=== PATIENT | female | born 1985 | race Caucasian/White ===

== ENCOUNTER 2017-03-15 18:57 | Emergency (ER) | payer BC ==
[2017-03-15 19:06] VITALS: BP 123/78; PULSE 63; RESP 18; TEMP 98.5; O2SAT 97
--- NOTE | 2017-03-15 20:30 | C.PDOC ---
History Of Present Illness 31 year old female w/o significant PMHx presents to the ED for evaluation of gradually worsening lower back pain for four days. Patient notes pain is localized over lower back, non-radiating, aching, constant, exacerbated by movement. Pt admits to taking a test at home that was negative. Patient denies known trauma or injury, fever, chills, abdominal pain, nausea, vomiting, UTI sx, saddle anesthesia, incontinence, denies weakness, sensory or vascular deficits to B/L LEs. Ambulate to ED for evaluation, appears in pain. Time Seen by Provider: 03/15/17 20:20 Chief Complaint (Nursing): Back Pain History Per: Patient, Family (boyfriend) History/Exam Limitations: no limitations Onset/Duration Of Symptoms: Days (4 days ) Current Symptoms Are (Timing): Still Present Quality Of Discomfort: "Pain" Previous Symptoms: None Associated Symptoms: None Exacerbating Factor(s): Movement Recent travel outside of the [place]: No Past Medical History Reviewed: Historical Data, Nursing Documentation, Vital Signs Vital Signs: Last Vital Signs Temp 98.5 F 03/15/17 19:05 Pulse 63 03/15/17 19:05 Resp 18 03/15/17 19:05 BP 123/78 03/15/17 19:05 Pulse Ox 97 03/15/17 21:04 - Medical History PMH: Anxiety, Bipolar Disorder, Schizophrenia (schizoaffective) - [facility] Procedures GROUP PSYCHOTHERAPY (03/01/16) INDIVID PSYCHOTHERAP NEC (01/22/15) INDIVIDUAL PSYCHOTHERAPY, BEHAVIORAL (03/01/16) OTHER GROUP THERAPY (01/22/15) Family History: States: Unknown Family Hx - Social History Hx Alcohol Use: No Hx Substance Use: No Review Of Systems Constitutional: Negative for: Fever, Chills Cardiovascular: Negative for: Chest Pain Respiratory: Negative for: Shortness of Breath Gastrointestinal: Negative for: Nausea, Vomiting, Abdominal Pain, Diarrhea Genitourinary: Negative for: Dysuria, Hematuria Musculoskeletal: Positive for: Back Pain Neurological: Negative for: Weakness, Numbness Physical Exam - Physical Exam Appears: Well, Non-toxic, No Acute Distress Skin: Normal Color, Warm, Dry, No Rash, No Ecchymosis Eye(s): bilateral: PERRL Nose: No Discharge Oral Mucosa: Moist Throat: No Erythema Neck: No Midline Cervical Tenderness, No Paracervical Tenderness, No Step Off Deformity, Supple Gastrointestinal/Abdominal: Soft, No Tenderness, No Distention, No Guarding Back: No CVA Tenderness, No Vertebral Tenderness, No Decreased ROM, Muscle Spasm , Paraspinal Tenderness (diffuse lumbar paraspinal tenderness. NO palpable deformity.), No Straight Leg Raising Extremity: No Pedal Edema, No Deformity Neurological/Psych: Oriented x3, Normal Speech, Normal Motor, Normal Sensation, Normal Reflexes ED Course And Treatment - Laboratory Results Urine POC: Negative O2 Sat by Pulse Oximetry: 97 (room air ) Pulse Ox Interpretation: Normal - Other Rad L-spine X-Ray: Interpreted by Me, Viewed By Me Interpretation: (-) acute fx or sublux, (+) gas pattern c/w constipation Progress Note: On re-eval, pt is afebrile, hemodynamicaly stable. Non-toxic. AMbulatory in ED with stable gait. Neck: Supple. Abd: benign, (-) guardng, (- ) rebound. Back: (-) CVA tenderness. Neurological intact. Imaging review and appears normal. UA c/w UTI. Pt has clinical findings c/w lower back strain r/o lumbar strain, UTI. Pt advised and ref. to F/u with PMD in 2-3 days for re-eavl. return to ED if any worsening or new changes. Disposition Counseled Patient/Family Regarding: Studies Performed, Diagnosis, Need For Followup, Rx Given - Disposition Referrals: [facility] [Outside] Disposition: HOME/ ROUTINE Disposition Time: 20:52 Condition: STABLE Additional Instructions: LIght duty to lower back Avoid heavy lifting, bending forward for 1-2 weeks Take medication as prescribed as need Encourage fluids Follow up with PMD in 2-3 days for re-evaluation. Return to ED if any worsening or new changes. Prescriptions: Ibuprofen [Motrin Tab] 600 mg PO Q6 #20 tab Methocarbamol [Robaxin] 500 mg PO TID #14 tab Nitrofurantoin Macrocrystals [Macrobid] 1 cap PO BID #14 cap traMADol [Ultram] 50 mg PO TID #7 tab Instructions: Back Pain (ED), Urinary Tract Infection in Women (ED) Forms: [employer] (French) Print Language: TURKMEN - Clinical Impression Clinical Impression: Low back strain, UTI (urinary tract infection) - Scribe Statement The provider has reviewed the documentation as recorded by the Scribe Yen Huitron All medical record entries made by the Scribe were at my direction and personally dictated by me. I have reviewed the chart and agree that the record accurately reflects my personal performance of the history, physical exam, medical decision making, and the department course for this patient. I have also personally directed, reviewed, and agree with the discharge instructions and disposition.
[2017-03-15 20:48] LABS: RBC URINE 37 /hpf (0-3); TRANSITIONAL EPITHIAL < 1 /hpf (0-3); URINE BACTERIA OCC (<OCC); URINE BILIRUBIN NEGATIVE (NEGATIVE); URINE BLOOD 3+ (NEGATIVE); URINE COLOR Straw (YELLOW); URINE GLUCOSE (UA) NORMAL (Normal); URINE KETONE NEGATIVE (NEGATIVE); URINE LEUKOCYTE ESTERASE 1+ Leu/uL (Negative); URINE PROTEIN NEGATIVE (NEGATIVE); URINE UROBILINOGEN NORMAL mg/dL (0.2-1.0); WBC URINE 9 /hpf (0-5)
--- NOTE | 2017-03-16 10:59 | RAD ---
PROCEDURE: Radiographs of the Lumbar Spine. HISTORY: pain COMPARISON: None available. FINDINGS: Examination limited by extensive bowel gas. BONES: Alignment appears satisfactory. No listhesis. No acute displaced fracture identified. DISC SPACES: Unremarkable. OTHER FINDINGS: None. IMPRESSION: Examination limited by extensive bowel gas. No acute displaced fracture or subluxation identified.
== END 2017-03-15 21:25 | disposition home or self-care (01) ==
LOC: C.ER 18:57
DX: S39.012A Strain of muscle, fascia and tendon of lower back, initial encounter (principal); X58.XXXA Exposure to other specified factors, initial encounter; N39.0 Urinary tract infection, site not specified
CPT/HCPCS: 72100; 81001; 96372; 99283; J1885

== ENCOUNTER 2017-05-24 13:47 | Emergency (ER) | payer BC ==
[2017-05-24 13:54] VITALS: PULSE 71; TEMP 97.7; O2SAT 98
--- NOTE | 2017-05-24 14:42 | C.PDOC ---
History Of Present Illness 31 y/o female, PMHx of bipolar disorder, schizophrenia, presents to ED with c/o lower back pain for 1 day. Patient denies injury or trauma. Patient reports pain worsens with walking. Denies new weakness, new numbness, nausea, vomiting, abdominal pain, or other associated symptoms. Time Seen by Provider: 05/24/17 13:55 Chief Complaint (Nursing): Back Pain History Per: Patient History/Exam Limitations: no limitations Onset/Duration Of Symptoms: Days Current Symptoms Are (Timing): Still Present Quality Of Discomfort: "Pain" Previous Symptoms: Back Pain Associated Symptoms: denies: New Weakness, New Numbness Exacerbating Factor(s): Movement Recent travel outside of the [place]: No Past Medical History Reviewed: Historical Data, Nursing Documentation, Vital Signs Vital Signs: Last Vital Signs Temp 97.7 F 05/24/17 13:50 Pulse 71 05/24/17 15:48 Resp 18 05/24/17 15:48 BP 125/72 05/24/17 15:48 Pulse Ox 98 05/24/17 15:48 - Medical History PMH: Anxiety, Bipolar Disorder, Schizophrenia (schizoaffective) - [facility] Procedures GROUP PSYCHOTHERAPY (03/01/16) INDIVID PSYCHOTHERAP NEC (01/22/15) INDIVIDUAL PSYCHOTHERAPY, BEHAVIORAL (03/01/16) OTHER GROUP THERAPY (01/22/15) Family History: States: Unknown Family Hx - Social History Hx Alcohol Use: No Hx Substance Use: No - Immunization History Hx Tetanus Toxoid Vaccination: No Hx Influenza Vaccination: No Hx Pneumococcal Vaccination: No Review Of Systems Except As Marked, All Systems Reviewed And Found Negative. Constitutional: Negative for: Fever, Chills Cardiovascular: Negative for: Chest Pain Respiratory: Negative for: Cough, Shortness of Breath Gastrointestinal: Negative for: Nausea, Vomiting, Abdominal Pain Musculoskeletal: Positive for: Back Pain. Negative for: Neck Pain Skin: Negative for: Rash Neurological: Negative for: Weakness, Numbness, Headache, Dizziness Physical Exam - Physical Exam Appears: Non-toxic, No Acute Distress Skin: Normal Color, Warm, Dry Head: Atraumatic, Normacephalic Neck: Normal ROM, No Midline Cervical Tenderness, No Paracervical Tenderness, No Step Off Deformity, Supple Chest: Symmetrical Cardiovascular: Rhythm Regular Respiratory: Normal Breath Sounds, No Rales, No Rhonchi, No Wheezing Gastrointestinal/Abdominal: Soft, No Tenderness, No Guarding, No Rebound Back: No Vertebral Tenderness, Paraspinal Tenderness (mild bilateral paralumbar ) Extremity: Normal ROM, Capillary Refill (< 2 sec.), No Deformity Extremity: Bilateral: Normal Color And Temperature Neurological/Psych: Oriented x3, Normal Speech, Normal Cognition, Normal Motor, Normal Sensation ED Course And Treatment - Laboratory Results Lab Interpretation: Normal (ua neg.) Urine POC: Negative O2 Sat by Pulse Oximetry: 98 (RA) Pulse Ox Interpretation: Normal Progress Note: motrin/tylenol, ice packs Reevaluation Time: 15:40 Reassessment Condition: Improved Medical Decision Making Medical Decision Making: lubar/sacral strain/sprain, normal neuro exam. anxiety may magnify pt's reaction to mild pain Disposition Doctor Will See Patient In The: Office Counseled Patient/Family Regarding: Studies Performed, Diagnosis - Disposition Referrals: [facility] [Outside] [facility] [Outside] Disposition: HOME/ ROUTINE Disposition Time: 15:41 Condition: GOOD Additional Instructions: continue ice packs 1/2 hour per hour, nothing hot Motrin 400-600 mg every 6 hours as needed Follow-up in our outpatient Clinic as needed No heat therapies! Instructions: Acute Low Back Pain (GEN) Forms: [employer] (Bengali) - Clinical Impression Clinical Impression: Lumbar sprain - Scribe Statement The provider has reviewed the documentation as recorded by the Scribe SM All medical record entries made by the Scribe were at my direction and personally dictated by me. I have reviewed the chart and agree that the record accurately reflects my personal performance of the history, physical exam, medical decision making, and the department course for this patient. I have also personally directed, reviewed, and agree with the discharge instructions and disposition.
[2017-05-24 15:38] LABS: RBC URINE 3 /hpf (0-3); URINE BACTERIA OCC (<OCC); URINE BILIRUBIN NEGATIVE (NEGATIVE); URINE BLOOD NEGATIVE (NEGATIVE); URINE COLOR Colorless (YELLOW); URINE GLUCOSE (UA) NORMAL (Normal); URINE KETONE NEGATIVE (NEGATIVE); URINE LEUKOCYTE ESTERASE NEG Leu/uL (Negative); URINE PROTEIN NEGATIVE (NEGATIVE); URINE UROBILINOGEN NORMAL mg/dL (0.2-1.0); WBC URINE 1 /hpf (0-5)
[2017-05-24 15:50] VITALS: BP 125/72; RESP 18
== END 2017-05-24 15:50 | disposition home or self-care (01) ==
LOC: C.ER 13:47
DX: S33.5XXA Sprain of ligaments of lumbar spine, initial encounter (principal); X58.XXXA Exposure to other specified factors, initial encounter

== ENCOUNTER 2017-05-24 21:29 | Emergency (ER) | payer BC ==
[2017-05-24 21:48] VITALS: O2SAT 99
[2017-05-24] MEDS ORDERED: Lidocaine 5% Patch TD STA (21:59)
[2017-05-24] MEDS ORDERED: Dexamethasone 4 mg/1 ml IM STA (21:59)
[2017-05-24] MEDS ORDERED: Lidocaine 5% Patch TD ONE (22:08)
--- NOTE | 2017-05-24 22:44 | C.PDOC ---
History Of Present Illness Patient reports 2 day history of pain to the right lower back which radiates down the right leg. The patient reports that the pain is worsened with movement and walking. Denies numbness, weakness, bowel/bladder incontinence, trauma, fever, dysuria, or abdominal pain. Time Seen by Provider: 05/24/17 21:52 Chief Complaint (Nursing): Back Pain History Per: Patient History/Exam Limitations: no limitations Previous Symptoms: Back Pain Associated Symptoms: None Recent travel outside of the [place]: No Past Medical History Vital Signs: Last Vital Signs Temp 98.3 F 05/24/17 21:40 Pulse 66 05/24/17 21:40 Resp 16 05/24/17 21:40 BP 108/75 05/24/17 21:40 Pulse Ox 99 05/24/17 22:46 - Medical History PMH: Anxiety, Bipolar Disorder, Schizophrenia (schizoaffective) Denies: Diabetes, Hepatitis, HIV, HTN, Chronic Kidney Disease, Seizures, Sexually Transmitted Disease - [facility] Procedures GROUP PSYCHOTHERAPY (03/01/16) INDIVID PSYCHOTHERAP NEC (01/22/15) INDIVIDUAL PSYCHOTHERAPY, BEHAVIORAL (03/01/16) OTHER GROUP THERAPY (01/22/15) Family History: States: Unknown Family Hx - Social History Hx Alcohol Use: No Hx Substance Use: No - Immunization History Hx Tetanus Toxoid Vaccination: No Hx Influenza Vaccination: No Hx Pneumococcal Vaccination: No Review Of Systems Except As Marked, All Systems Reviewed And Found Negative. Musculoskeletal: Positive for: Back Pain Neurological: Negative for: Weakness, Numbness Physical Exam - Physical Exam Appears: Non-toxic, No Acute Distress Skin: Normal Color, Warm, No Rash Head: Atraumatic, Normacephalic Eye(s): bilateral: Normal Inspection, PERRL, EOMI Oral Mucosa: Moist Neck: Normal ROM, No Midline Cervical Tenderness, No Paracervical Tenderness, Supple Chest: Symmetrical, No Tenderness Cardiovascular: Rhythm Regular, No Friction Rub, No Murmur Respiratory: Normal Breath Sounds, No Rales, No Rhonchi, No Wheezing Gastrointestinal/Abdominal: Bowel Sounds (active), Soft, No Tenderness Back: Normal Inspection, No Vertebral Tenderness, Paraspinal Tenderness (right lumbar) Extremity: Normal ROM, No Tenderness, No Swelling Neurological/Psych: Oriented x3, Normal Speech, Normal Cranial Nerves, Normal Motor, Normal Sensation Gait: Steady ED Course And Treatment O2 Sat by Pulse Oximetry: 99 Pulse Ox Interpretation: Normal Progress Note: Old records reviewed, the patient was seen in the ED with similar complaints earlier today, had negative UA and was discharged home with a normal physical exam. The physical exam remains benign and no further diagnostic testing is needed. Medical Decision Making Medical Decision Making: On re-exam, the patient reports improvement of symptoms. Lungs are CTA, heart is RRR, abdomen is soft, non-tender and tolerating PO well. Ambulatory in the ED with steady gait. Follow up with the medical doctor/clinic within 1-2 days. Return if worsened. Disposition - Disposition Referrals: Vahid Teran MD [Non-Staff] - Disposition: HOME/ ROUTINE Disposition Time: 22:43 Condition: GOOD Additional Instructions: Follow up with the medical doctor/clinic within 1-2 days. Return if worsened. Prescriptions: Lidocaine 5% [Lidoderm] 1 patch TOP DAILY PRN #7 patch PRN Reason: Pain, Moderate (4-7) Naproxen [Naprosyn] 500 mg PO BID #20 tab Instructions: Sciatica (ED) Forms: [employer] (Jamaican) Print Language: CZECH - Clinical Impression Clinical Impression: Sciatica
[2017-05-24 22:52] VITALS: BP 109/61; PULSE 79; RESP 18; TEMP 98.2
== END 2017-05-24 22:51 | disposition home or self-care (01) ==
LOC: C.ER 21:29
DX: M54.30 Sciatica, unspecified side (principal)
CPT/HCPCS: 96372; 99283; J1100; J1885

== ENCOUNTER 2017-07-04 21:02 | Emergency (ER) | payer BC ==
[2017-07-04 21:12] VITALS: O2SAT 99
[2017-07-04] MEDS ORDERED: Belladonna-Phenobarbital PO STA (21:31)
[2017-07-04] MEDS ORDERED: Aluminum Hydroxide/Magnesium Hydroxide Susp (30 mL) PO STA (21:31)
--- NOTE | 2017-07-04 21:31 | C.PDOC ---
History Of Present Illness 31 year old female with a Hx of bipolar disorder and schizophrenia presents to the ER with a complaint of generalized abdominal pain and feeling "gassy" and bloated. Patient took Gas x today with minimal relief to symptoms. Denies fever, chills, or vomiting. Patient is currently menstruating. No fever chills/ no dysuria, hematuria. otherwise well appearing. Patient reports a Hx of 2 c-sections, the most recent was approximately 9 years ago. Patient was seen on 05/24/17 for right lower back pain radiating down the right leg/sciatica. Patient was also here on 03/15/17 for lower back pain and UTI, had a lumbar spine x-ray at the time that was negative. Time Seen by Provider: 07/04/17 21:19 Chief Complaint (Nursing): Abdominal Pain History Per: Patient History/Exam Limitations: no limitations Onset/Duration Of Symptoms: Hrs Current Symptoms Are (Timing): Still Present Severity: Mild Location Of Pain/Discomfort: Diffuse Radiation Of Pain To:: None Quality Of Discomfort: Unable To Describe Associated Symptoms: denies: Fever, Chills, Vomiting, Diarrhea Exacerbating Factors: None Alleviating Factors: None Recent travel outside of the [place]: No Additional History Per: Patient Abnormal Vaginal Bleeding: No Past Medical History Reviewed: Historical Data, Nursing Documentation, Vital Signs Vital Signs: Last Vital Signs Temp 98.8 F 07/04/17 23:36 Pulse 61 07/04/17 23:36 Resp 18 07/04/17 23:36 BP 98/65 L 07/04/17 23:36 Pulse Ox 99 07/05/17 02:04 - Medical History PMH: No Chronic Diseases, Anxiety, Bipolar Disorder, Depression, Gastritis, Schizophrenia (schizoaffective) Surgical History: - [facility] Procedures GROUP PSYCHOTHERAPY (03/01/16) INDIVID PSYCHOTHERAP NEC (01/22/15) INDIVIDUAL PSYCHOTHERAPY, BEHAVIORAL (03/01/16) OTHER GROUP THERAPY (01/22/15) Family History: States: Unknown Family Hx - Social History Hx Alcohol Use: Yes Hx Substance Use: No - Immunization History Hx Tetanus Toxoid Vaccination: No Hx Influenza Vaccination: No Hx Pneumococcal Vaccination: No Review Of Systems Constitutional: Negative for: Fever, Chills Eyes: Negative for: Pain ENT: Negative for: Ear Pain Cardiovascular: Negative for: Chest Pain, Palpitations, Orthopnea, Paroxysmal Noc. Dyspnea, Edema, Light Headedness Respiratory: Negative for: Cough, Shortness of Breath, Hemoptysis, SOB with Excertion, Pleuritic Pain, Sputum, Wheezing Gastrointestinal: Positive for: Nausea, Abdominal Pain. Negative for: Vomiting , Diarrhea Genitourinary: Negative for: Dysuria, Frequency, Incontinence, Hematuria, Vaginal Discharge, Vaginal Bleeding, Pelvic Pain, Rash Musculoskeletal: Negative for: Neck Pain, Back Pain Neurological: Negative for: Weakness, Confusion Psych: Negative for: Anxiety, Depression Physical Exam - Physical Exam Appears: Non-toxic, No Acute Distress Skin: Normal Color, Warm, Dry Head: Atraumatic, Normacephalic Eye(s): bilateral: Normal Inspection Oral Mucosa: Moist Tongue: Normal Appearing Lips: Normal Appearing Teeth: Normal Dentition Gingiva: Normal Appearing Throat: Normal Neck: Normal, Supple Chest: Symmetrical, No Tenderness Cardiovascular: Rhythm Regular Respiratory: Normal Breath Sounds, No Rales, No Rhonchi, No Wheezing Gastrointestinal/Abdominal: Soft, No Tenderness, No Distention, Other (Slightly bloated) Back: No CVA Tenderness Neurological/Psych: Oriented x3, Normal Speech ED Course And Treatment - Laboratory Results Result Diagrams: 07/04/17 21:56 07/04/17 21:56 O2 Sat by Pulse Oximetry: 99 (Room air) Pulse Ox Interpretation: Normal Medical Decision Making Medical Decision Making: Plan: * Beta HCG * CMP * Lipase * CBC * Upreg * UA * * Maalox * Pepcid * Reglan * Lactated Ringers On reevaluation, patient reports improvement of pain, feels comfortable being discharged home.labs reviewed .Pt given copies. Disposition - Disposition Referrals: [facility] at [facility] [Outside] [facility] at [facility] [Outside] [facility] [Outside] [facility] [Outside] Disposition: HOME/ ROUTINE Disposition Time: 12:00 Condition: STABLE Instructions: Acute Abdominal Pain (ED) Forms: Gen Discharge Inst German, [facility] (Dutch) Print Language: LIBYAN - Clinical Impression Clinical Impression: Abdominal pain - Scribe Statement The provider has reviewed the documentation as recorded by the Scribe Willem Burch All medical record entries made by the Scribe were at my direction and personally dictated by me. I have reviewed the chart and agree that the record accurately reflects my personal performance of the history, physical exam, medical decision making, and the department course for this patient. I have also personally directed, reviewed, and agree with the discharge instructions and disposition.
[2017-07-04] MEDS ORDERED: Lactated Ringer's 1,000 ML IV ONE (21:32)
[2017-07-04] MEDS ORDERED: Aluminum Hydroxide/Magnesium Hydroxide Susp (30 mL) ONE (21:43)
[2017-07-04] MEDS ORDERED: Lactated Ringer's 1,000 ML ONE (21:43)
[2017-07-04] MEDS ORDERED: Belladonna-Phenobarbital ONE (21:43)
[2017-07-04 21:55] LABS: RBC URINE 8 /hpf (0-3); URINE BACTERIA RARE (<OCC); URINE BILIRUBIN NEGATIVE (NEGATIVE); URINE BLOOD 2+ (NEGATIVE); URINE COLOR Yellow (YELLOW); URINE GLUCOSE (UA) NORMAL (Normal); URINE KETONE NEGATIVE (NEGATIVE); URINE LEUKOCYTE ESTERASE NEG Leu/uL (Negative); URINE PROTEIN NEGATIVE (NEGATIVE); URINE UROBILINOGEN NORMAL mg/dL (0.2-1.0); WBC URINE 2 /hpf (0-5)
[2017-07-04 22:04] LABS: BASO # 0.1 K/uL (0.0-0.2); BASO % 0.8 % (0.0-2.0); EOS # 0.3 K/uL (0.0-0.7); EOS % 2.9 % (0.0-4.0); HEMATOCRIT 34.5 % (34.0-47.0); LYMPH # 3.8 K/uL (1.0-4.3); LYMPH % 39.6 % (20.0-40.0); MEAN CELL VOLUME 80.3 fL (81.0-99.0); MEAN CORPUSCULAR HEMOGLOBIN 26.3 pg (27.0-31.0); MEAN CORPUSCULAR HGB CONC 32.7 g/dL (33.0-37.0); MEAN PLATELET VOLUME 8.9 fL (7.2-11.7); MONO # 0.8 K/uL (0.0-0.8); MONO % 8.1 % (0.0-10.0); RED CELL DISTRIBUTION WIDTH 15.1 % (11.5-14.5); WHITE BLOOD COUNT 9.6 K/uL (4.8-10.8)
[2017-07-04 22:16] LABS: ALKALINE PHOSPHATASE 58 U/L (38-126); ALT/SGPT 44 U/L (9-52); AST/SGOT 29 U/L (14-36); BILIRUBIN,TOTAL 0.3 mg/dL (0.2-1.3); BLOOD UREA NITROGEN 18 mg/dL (7-17); CALCIUM 8.6 mg/dl (8.6-10.4); CARBON DIOXIDE 28 mmol/L (22-30); CHLORIDE 104 mmol/L (98-107); GFR AFRICAN-AMERICAN > 60; GLUCOSE,RANDOM 101 mg/dL (65-105); SODIUM 140 mmol/L (132-148); TOTAL PROTEIN 7.6 g/dL (6.3-8.3)
[2017-07-04 23:36] VITALS: BP 98/65; PULSE 61; RESP 18; TEMP 98.8
== END 2017-07-04 23:39 | disposition home or self-care (01) ==
LOC: C.ER 21:02
DX: R10.9 Unspecified abdominal pain (principal)
CPT/HCPCS: 80053; 81001; 83690; 84702; 84703; 85025; 96360; 99284; J2765; J7120